=== PATIENT | male | born 1995 | race Two or more races ===

== ENCOUNTER 2016-05-16 13:42 | Emergency (ER) | payer OTHER ==
[2016-05-16 13:52] VITALS: BMI 20.3
--- NOTE | 2016-05-16 16:21 | PDOC ---
History of Present Illness - History of Present Illness Initial Comments: 05/16/16 16:39 The patient is a 21 year old male with a past medical hx of gastritis, H. pylori who presents to the ED complaining of nausea and vomiting since this morning. The patient notes he saw his GI three months ago for these symptoms. He notes she had an endoscopy and was diagnosed with H. pylori and treated for 14 days. The patient states he has been fine since the treatment up until this morning. The patient reports he ate his breakfast and immediately vomited. He notes he feels fine when he is not eating but once he tries to eat he cannot keep any food down. He reports his throat feels very acids. The patient reports he took Zantac with no relief of his acidy sensation. The patient denies abdominal pain, diarrhea, constipation The patient denies fever, chills, dysuria PCP: Dr. Srinivasan GI: Dr. Smith Surgical: No abdominal surgeries Allergies: NKDA <Kalani Aranda - Last Filed: 05/16/16 16:40> <Dafne Linn - Last Filed: 05/16/16 18:23> - General Chief Complaint: Nausea/Vomiting Stated Complaint: VOMITING Time Seen by Provider: 05/16/16 16:19 Past History <Kalani Aranda - Last Filed: 05/16/16 16:40> - Past Medical History Anemia: No Asthma: No Cancer: No Cardiac Disorders: No CVA: No COPD: No CHF: No Dementia: No Diabetes: No GI Disorders: No Disorders: No HTN: No Hypercholesterolemia: No Liver Disease: No Seizures: No Thyroid Disease: No - Surgical History Abdominal Surgery: No Appendectomy: No Cardiac Surgery: No Cholecystectomy: No Lung Surgery: No Neurologic Surgery: No Orthopedic Surgery: No - Immunization History Immunization Up to Date: Yes - Psycho/Social/Smoking Cessation Hx Anxiety: No Suicidal Ideation: No Smoking History: Never smoked Have you smoked in the past 12 months: No Number of Cigarettes Smoked Daily: 0 Information on smoking cessation initiated: No Hx Alcohol Use: No Drug/Substance Use Hx: No Substance Use Type: None <Dafne Linn - Last Filed: 05/16/16 18:23> - Past Medical History Allergies/Adverse Reactions: Allergies Allergy/AdvReac Type Severity Reaction Status Date / Time No Known Allergies Allergy Verified 05/16/16 13:51 Home Medications: Ambulatory Orders Ondansetron [Zofran Odt -] 4 mg SL TID #21 od.tablet 05/16/16 Pantoprazole Sodium [Protonix -] 40 mg PO DAILY #7 tablet.ec 05/16/16 Ranitidine HCl [Zantac] 150 mg PO PRN PRN 05/16/16 Review of Systems - Review of Systems Able to Perform ROS?: Yes Comments:: 05/16/16 16:40 CONSTITUTIONAL: Absent: fever, chills, diaphoresis, generalized weakness, malaise, loss of appetite HEENT: Absent: rhinorrhea, nasal congestion, throat pain, throat swelling, difficulty swallowing, mouth swelling, ear pain, eye pain, visual Changes CARDIOVASCULAR: Absent: chest pain, syncope, palpitations, irregular heart rate, lightheadedness , peripheral edema RESPIRATORY: Absent: cough, shortness of breath, dyspnea with exertion, orthopnea, wheezing, stridor, hemoptysis GASTROINTESTINAL: +Nausea, vomiting. Absent: abdominal pain, abdominal distension, diarrhea, constipation, melena, hematochezia GENITOURINARY: Absent: dysuria, frequency, urgency, hesitancy, hematuria, flank pain, genital pain MUSCULOSKELETAL: Absent: myalgia, arthralgia, joint swelling SKIN: Absent: rash, itching, pallor NEUROLOGIC: Absent: headache, focal weakness or paresthesias, dizziness, unsteady gait, seizure, mental status changes, bladder or bowel incontinence PSYCHIATRIC: Absent: anxiety, depression, suicidal or homicidal ideation, hallucinations. <Kalani Aranda - Last Filed: 05/16/16 16:40> *Physical Exam - Vital Signs Last Vital Signs Temp Pulse Resp BP Pulse Ox 97.7 F 64 18 94/58 99 05/16/16 13:49 05/16/16 13:49 05/16/16 13:49 05/16/16 13:49 05/16/16 13:49 - Physical Exam Comments: 05/16/16 16:40 GENERAL: Well developed, well nourished. Awake and alert. No acute distress. HEENT: Normocephalic, atraumatic. PERRLA, EOMI. No conjunctival pallor. Sclera are non- icteric. Moist mucous membranes. Oropharynx is clear. NECK: Supple. Full ROM. No JVD. Carotid pulses 2+ and symmetric, without bruits. No thyromegaly. No lymphadenopathy. CARDIOVASCULAR: Regular rate and rhythm. No murmurs, rubs, or gallops. Distal pulses are 2+ and symmetric. PULMONARY: No evidence of respiratory distress. Lungs clear to auscultation bilaterally. No wheezing, rales or rhonchi. ABDOMINAL: Soft. Non-tender. Non-distended. No rebound or guarding. No organomegaly. Normoactive bowel sounds. MUSCULOSKELETAL Normal range of motion at all joints. No bony deformities or tenderness. No CVA tenderness. EXTREMITIES: No cyanosis. No clubbing. No edema. No calf tenderness. SKIN: Warm and dry. Normal capillary refill. No rashes. No jaundice. NEUROLOGICAL: Alert, awake, appropriate. Cranial nerves 2-12 intact. No deficits to light touch and temperature in face, upper extremities and lower extremities. No motor deficits in the in face, upper extremities and lower extremities. PSYCHIATRIC: Cooperative. Good eye contact. Appropriate mood and affect. <Kalani Aranda - Last Filed: 05/16/16 16:40> - Vital Signs Last Vital Signs Temp Pulse Resp BP Pulse Ox 97.7 F 64 18 94/58 99 05/16/16 13:49 05/16/16 13:49 05/16/16 13:49 05/16/16 13:49 05/16/16 13:49 <Dafne Linn - Last Filed: 05/16/16 18:23> ED Treatment Course - LABORATORY CBC & Chemistry Diagram: 05/16/16 16:34 05/16/16 16:34 <Dafne Linn - Last Filed: 05/16/16 18:23> Medical Decision Making - Medical Decision Making 05/16/16 17:26 21 yo male with h/o gastritis and H pylori now has severe esophageal burning and was vomiting today -he had been taking zantac before but it was not working today -pt has soft, nontender abdomen I reviewed his old records and his last EDG w biopsy was 11/01/16 and found to have H pylori and gastritis.He was treated for this and had been pain free since that time until today GI Dr Smith [facility] 05/16/16 18:12 -reviewed labs are unremarkable, LFT wnl, cbc wnl -pt feeling better,symptom resolved plan- discharge home -will RX for protonix -also the pt was told to try maalox for occasional relief -call Dr Smith's office for an appt <Dafne Linn - Last Filed: 05/16/16 18:23> *DC/Admit/Observation/Transfer - Attestations Scribe Attestion: 05/16/16 16:37 Documentation prepared by Kalani Aranda, acting as emergency medical service coordinator for Dafne Linn MD/DO. <Kalani Aranda - Last Filed: 05/16/16 16:40> <Dafne Linn - Last Filed: 05/16/16 18:23> Diagnosis at time of Disposition: Gastroesophageal reflux disease Qualifiers: Esophagitis presence: with esophagitis Qualified Code(s): K21.0 - Gastro- esophageal reflux disease with esophagitis Nausea and vomiting Qualifiers: Vomiting type: unspecified Vomiting Intractability: non-intractable Qualified Code(s): R11.2 - Nausea with vomiting, unspecified - Discharge Dispostion Disposition: HOME Condition at time of disposition: Stable - Prescriptions Prescriptions: Pantoprazole Sodium [Protonix -] 40 mg PO DAILY #7 tablet.ec Ondansetron [Zofran Odt -] 4 mg SL TID #21 od.tablet - Referrals Referrals: Craig Cao MD [Primary Care Provider] - Taj Smith MD [Staff Physician] - - Patient Instructions Printed Discharge Instructions: DI for Gastroesophageal Reflux Disease (GERD), DI for Vomiting -- Adult Additional Instructions: PLEASE CALL DR SMITH'S OFFICE AND MAKE AN APPOINTMENT IF YOUR SYMPTOMS [employer] YOUR PRESCRIPTIONS AT [facility] RETURN IF YOUR SYMPTOMS WORSEN
[2016-05-16] MEDS ORDERED: MAG HYDROX/AL HYDROX/SIMETH 30 ML UNIT-DOSE CUP PO ONE (16:30)
[2016-05-16] MEDS ORDERED: PANTOPRAZOLE SODIUM 40 MG in SODIUM CHLORIDE 100 ML IVPB ONE (16:30)
[2016-05-16] MEDS ORDERED: ONDANSETRON 4 MG/2 ML VIAL IVPUSH ONE (16:31)
[2016-05-16] MEDS ORDERED: PANTOPRAZOLE SODIUM 100 ML IVPB ONE (16:42)
[2016-05-16] MEDS ORDERED: ONDANSETRON 4 MG/2 ML VIAL ONE (16:43)
[2016-05-16] MEDS ORDERED: MAG HYDROX/AL HYDROX/SIMETH 30 ML UNIT-DOSE CUP ONE (16:43)
[2016-05-16 17:14] LABS: BASOPHIL 0.5 % (0-2.0); EOSINOPHIL 0.4 % (0-4.5); MCH 28.1 pg (25.7-33.7); MCHC 34.2 g/dl (32.0-35.9); MEAN CELL VOLUME 82.1 fl (80-96); MEAN PLT VOLUME 9.4 fl (7.5-11.1); NEUTROPHILS 73.5 % (42.8-82.8); PLATELET COUNT 134 K/MM3 (134-434); RDW 12.9 % (11.9-15.9); WHITE BLOOD COUNT 5.8 K/mm3 (4.0-10.0)
[2016-05-16 17:33] LABS: ALBUMIN 4.4 g/dl (3.4-5.0); ANION GAP 9 (8-16); BILIRUBIN,TOTAL 1.1 mg/dL (0.2-1.0); CALCIUM 9.6 mg/dL (8.5-10.1); CO2 29 mmol/L (21-32); CREATININE 0.6 mg/dL (0.7-1.3); GLUCOSE,RANDOM 96 mg/dL (74-106); SGOT/AST 33 U/L (15-37); SGPT/ALT 67 U/L (12-78); TOT PROT 7.9 g/dl (6.4-8.2)
[2016-05-16 17:34] LABS: ALK PHOS 81 U/L (45-117)
[2016-05-16 18:19] VITALS: BP 102/69; PULSE 66; TEMP 98.6
== END 2016-05-16 18:30 | disposition home or self-care (01) ==
LOC: JER 13:42
PROC: 3E033GC Introduction of Other Therapeutic Substance into Peripheral Vein, Percutaneous Approach (ICD-10-PCS; principal; 2016-05-16)
DX: R11.2 Nausea with vomiting, unspecified (principal); K21.0 Gastro-esophageal reflux disease with esophagitis
CPT/HCPCS: 36415; 80053; 85025; 96365; 96375; 99282-25

== ENCOUNTER 2016-08-05 01:46 | Emergency (ER) | payer OTHER ==
[2016-08-05] MEDS ORDERED: ONDANSETRON 4 MG TABLET PO ONE (02:31)
--- NOTE | 2016-08-05 02:31 | PDOC ---
History of Present Illness - General History Source: Patient Exam Limitations: No Limitations - History of Present Illness Initial Comments: 08/05/16 03:55 The patient is a 21 year old male with a significant past medical history of gastritis who presents to the ED with complaints of vomiting since earlier today. The patient reports multiple episodes of vomiting. Patient reports he typically has these episodes of vomiting every week. He reports he typically eats foods that are high in oil. Denies fevers or chills. Denies abdominal pain or diarrhea. Denies dysuria or changes in urinary output. Denies chest pain or shortness of breath. Denies any other symptoms. <Abe Avelar - Last Filed: 08/05/16 03:55> <Annabelle Padilla - Last Filed: 08/06/16 06:29> - General Stated Complaint: VOMITING Time Seen by Provider: 08/05/16 02:20 Past History <Abe Avelar - Last Filed: 08/05/16 03:55> - Past Medical History Anemia: No Asthma: No Cancer: No Cardiac Disorders: No CVA: No COPD: No CHF: No Dementia: No Diabetes: No GI Disorders: No Disorders: No HTN: No Hypercholesterolemia: No Liver Disease: No Seizures: No Thyroid Disease: No - Surgical History Abdominal Surgery: No Appendectomy: No Cardiac Surgery: No Cholecystectomy: No Lung Surgery: No Neurologic Surgery: No Orthopedic Surgery: No - Immunization History Immunization Up to Date: Yes - Psycho/Social/Smoking Cessation Hx Anxiety: No Suicidal Ideation: No Smoking History: Never smoked Have you smoked in the past 12 months: No Number of Cigarettes Smoked Daily: 0 Hx Alcohol Use: No Drug/Substance Use Hx: No Substance Use Type: None <Annabelle Padilla - Last Filed: 08/06/16 06:29> - Past Medical History Allergies/Adverse Reactions: Allergies Allergy/AdvReac Type Severity Reaction Status Date / Time No Known Allergies Allergy Verified 08/05/16 03:10 Home Medications: Ambulatory Orders Ondansetron [Zofran Odt -] 4 mg SL TID #21 od.tablet 05/16/16 Pantoprazole Sodium [Protonix -] 40 mg PO DAILY #7 tablet.ec 05/16/16 Ranitidine HCl [Zantac] 150 mg PO PRN PRN 05/16/16 Review of Systems - Review of Systems Able to Perform ROS?: Yes Comments:: 08/05/16 03:55 CONSTITUTIONAL: Absent: fever, chills, diaphoresis, generalized weakness, malaise, loss of appetite HEENT: Absent: rhinorrhea, nasal congestion, throat pain, throat swelling, difficulty swallowing, mouth swelling, ear pain, eye pain, visual Changes CARDIOVASCULAR: Absent: chest pain, syncope, palpitations, irregular heart rate, lightheadedness , peripheral edema RESPIRATORY: Absent: cough, shortness of breath, dyspnea with exertion, orthopnea, wheezing, stridor, hemoptysis GASTROINTESTINAL: + nausea, vomiting Absent: abdominal pain, abdominal distension, diarrhea, constipation, melena, hematochezia GENITOURINARY: Absent: dysuria, frequency, urgency, hesitancy, hematuria, flank pain, genital pain MUSCULOSKELETAL: Absent: myalgia, arthralgia, joint swelling SKIN: Absent: rash, itching, pallor HEMATOLOGIC/IMMUNOLOGIC: Absent: easy bleeding, easy bruising, lymphadenopathy, frequent infections ENDOCRINE: Absent: unexplained weight gain, unexplained weight loss, heat intolerance, cold intolerance NEUROLOGIC: Absent: headache, focal weakness or paresthesias, dizziness, unsteady gait, seizure, mental status changes, bladder or bowel incontinence PSYCHIATRIC: Absent: anxiety, depression, suicidal or homicidal ideation, hallucinations. All Other Systems: Reviewed and Negative <Abe Avelar - Last Filed: 08/05/16 03:55> *Physical Exam - Vital Signs Last Vital Signs Temp Pulse Resp BP Pulse Ox 98.5 F 75 19 106/67 99 08/05/16 03:06 08/05/16 03:06 08/05/16 03:06 08/05/16 03:06 08/05/16 03:06 - Physical Exam Comments: 08/05/16 03:55 GENERAL: Well developed, well nourished. Awake and alert. No acute distress. HEENT: Normocephalic, atraumatic. PERRLA, EOMI. No conjunctival pallor. Sclera are non- icteric. Moist mucous membranes. Oropharynx is clear. NECK: Supple. Full ROM. No JVD. Carotid pulses 2+ and symmetric, without bruits. No thyromegaly. NCo lymphadenopathy. CARDIOVASCULAR: Regular rate and rhythm. No murmurs, rubs, or gallops. Distal pulses are 2+ and symmetric. PULMONARY: No evidence of respiratory distress. Lungs clear to auscultation bilaterally. No wheezing, rales or rhonchi. ABDOMINAL: Soft. Non-tender. Non-distended. No rebound or guarding. No organomegaly. Normoactive bowel sounds. MUSCULOSKELETAL Normal range of motion at all joints. No bony deformities or tenderness. No CVA tenderness. EXTREMITIES: No cyanosis. No clubbing. No edema. No calf tenderness. SKIN: Warm and dry. Normal capillary refill. No rashes. No jaundice. NEUROLOGICAL: Alert, awake, appropriate. Cranial nerves 2-12 intact. No deficits to light touch and temperature in face, upper extremities and lower extremities. No motor deficits in the in face, upper extremities and lower extremities. Normoreflexic in the upper and lower extremities. Normal speech. Toes are down- going bilaterally. Gait is normal without ataxia. PSYCHIATRIC: Cooperative. Good eye contact. Appropriate mood and affect. <Abe Avelar - Last Filed: 08/05/16 03:55> ED Treatment Course - Medications Given in the ED: ED Medications Discontinued Medications Generic Name Dose Route Start Last Admin Trade Name Freq PRN Reason Stop Dose Admin Ondansetron HCl 4 mg 08/05/16 02:31 08/05/16 03:16 Zofran - PO 08/05/16 02:32 4 mg ONCE ONE Administration <Abe Avelar - Last Filed: 08/05/16 03:55> Medical Decision Making - Medical Decision Making 08/06/16 06:28 Pt comes again with vomiting. Exam is normal. Pulse is normal. Pt is not dehydrated. I asked pt to follow with GI as an outpatient. He will be given oral meds here and discharged. Pt has been here multiple times for the same complaint, and his labs are always normal. I will not check labs today. <Annabelle Padilla - Last Filed: 08/06/16 06:29> *DC/Admit/Observation/Transfer - Attestations Scribe Attestion: 08/05/16 03:56 Documentation prepared by Abe Avelar, acting as medical appointment scheduler for Annabelle Padilla MD <Abe Avelar - Last Filed: 08/05/16 03:55> - Discharge Dispostion Admit: No <Padilla,Annabelle - Last Filed: 08/06/16 06:29> Diagnosis at time of Disposition: Nausea and vomiting - Discharge Dispostion Disposition: HOME Condition at time of disposition: Stable - Referrals Referrals: Arnulfo Yung MD [Primary Care Provider] - - Patient Instructions Printed Discharge Instructions: Nausea and Vomiting-Adult
[2016-08-05] MEDS ORDERED: ONDANSETRON *ODT* 4 MG TABLET ONE (03:13)
[2016-08-05] MEDS ORDERED: MAG HYDROX/AL HYDROX/SIMETH 30 ML UNIT-DOSE CUP PO ONE (03:52)
[2016-08-05] MEDS ORDERED: DICYCLOMINE HCL 10 MG/5 ML PO ONE (03:54)
[2016-08-05] MEDS ORDERED: MAG HYDROX/AL HYDROX/SIMETH 30 ML UNIT-DOSE CUP ONE (04:16)
[2016-08-05 05:37] VITALS: BP 106/67; PULSE 75; TEMP 98.5; BMI 22.6
== END 2016-08-05 04:36 | disposition home or self-care (01) ==
LOC: JER 01:46
DX: R11.2 Nausea with vomiting, unspecified (principal); Z87.19 Personal history of other diseases of the digestive system
CPT/HCPCS: 99281-25